=== PATIENT | female | born 1950 | race Caucasian/White ===

== ENCOUNTER → 2017-09-02 | Outpatient (CLI) | payer MEDICARE ==
--- NOTE | 2017-09-06 08:53 | MM ---
Reason for exam: screening (asymptomatic). Last mammogram was performed 1 year and 2 months ago. History: Patient is postmenopausal. Benign cyst aspiration, 2009. Taking estrogen for 12 years 6 months beginning at age 46. Taking progesterone for 12 years 6 months beginning at age 46. Physical Findings: A clinical breast exam by your physician is recommended on an annual basis and results should be correlated with mammographic findings. MG Screening Mammo w CAD Bilateral CC and MLO view(s) were taken. Prior study comparison: June 30, 2016, bilateral MG screening mammo w CAD. May 23, 2015, bilateral MG screening mammo w CAD. The breast tissue is heterogeneously dense. This may lower the sensitivity of mammography. Medial asymmetric density right breast middle depth has no correlate on the MLO view and may represent summation shadow but warrants further evaluation. ASSESSMENT: Incomplete: need additional imaging evaluation, BI-RAD 0 RECOMMENDATION: Special view mammogram of the right breast. If lesion persists on supplemental views, image directed ultrasound is recommended. [facility] will attempt to contact patient to return for supplemental views and ultrasound if indicated.
== END | disposition home or self-care (01) ==
LOC: RADMAMWWP 10:50
PROVIDERS: ATTEND Family Medicine
DX: Z12.31 Encounter for screening mammogram for malignant neoplasm of breast (principal)
CPT/HCPCS: 77067

== ENCOUNTER → 2017-09-09 | Outpatient (CLI) | payer MEDICARE ==
--- NOTE | 2017-09-12 07:32 | MM ---
Reason for exam: additional evaluation requested from abnormal screening. Last mammogram was performed less than 1 month ago. History: Patient is postmenopausal. Benign cyst aspiration, 2008. Taking estrogen for 12 years 6 months beginning at age 46. Taking progesterone for 12 years 6 months beginning at age 46. Physical Findings: Nurse did not find any significant physical abnormalities on exam. MG Work Up Mamm w CAD RT LM and spot compression CC view(s) were taken of the right breast. Prior study comparison: September 02, 2017, bilateral MG screening mammo w CAD. June 30, 2016, bilateral MG screening mammo w CAD. The breast tissue is heterogeneously dense. This may lower the sensitivity of mammography. The questioned medial asymmetry disperses on additional views. These results were verbally communicated with the patient and result sheet given to the patient on 09/09/17. ASSESSMENT: Negative, BI-RAD 1 RECOMMENDATION: Return to routine screening mammogram schedule for both breasts.
== END | disposition home or self-care (01) ==
LOC: RADMAMWWP 12:53
PROVIDERS: ATTEND Family Medicine
DX: R92.8 Other abnormal and inconclusive findings on diagnostic imaging of breast (principal)
CPT/HCPCS: 77065

== ENCOUNTER → 2018-09-12 | Outpatient (CLI) | payer MEDICARE ==
--- NOTE | 2018-09-12 14:57 | BD ---
EXAMINATION TYPE: Axial Bone Density DATE OF EXAM: 09/12/2018 COMPARISON: NONE CLINICAL HISTORY: post menopausal. Osteoporosis screening. Height: 5'3 1/2 Weight: 155 FRAX RISK QUESTIONS: Secondary Osteoporosis: RISK FACTORS HISTORY OF: Postmenopausal woman: y Take estrogen and/or progesterone medications: y How lon years MEDICATIONS: Thyroid Medications: Which medication: Levothyroxine How Lon years Additional Medications: blood pressure Additional History: EXAM MEASUREMENTS: Bone mineral densitometry was performed using the [employer] System. Bone mineral density as measured about the Lumbar spine is: ----- L1-L4(G/cm2): 1.087 T Score Values are as follows: ----- L2: -1.6 ----- L3: -0.7 ----- L4: 0.5 ----- L1-L4:-0.8 Bone mineral density about the R hip (g/cm2): 0.823 Bone mineral density about the L hip (g/cm2): 0.828 T Score values are as follows: -----R Neck: -1.5 -----L Neck: -1.5 -----R Total: -1.0 -----L Total: -0.9 IMPRESSION: Osteopenia (T Score between -2.5 and -1). There is slightly increased risk of fracture and the patient may be considered for treatment. Re-Screen 2-5 years. NOTE: T-SCORE=SD OF THE YOUNG ADULT MEAN.
--- NOTE | 2018-09-13 08:35 | MM ---
Reason for exam: screening (asymptomatic). Last mammogram was performed 1 year ago. History: Patient is postmenopausal. Benign cyst aspiration, 2008. Taking estrogen for 12 years 6 months beginning at age 46. Taking progesterone for 12 years 6 months beginning at age 46. Physical Findings: A clinical breast exam by your physician is recommended on an annual basis and results should be correlated with mammographic findings. MG Screening Mammo w CAD Bilateral CC and MLO view(s) were taken. Prior study comparison: September 09, 2017, right breast MG work up mamm w CAD RT. September 02, 2017, bilateral MG screening mammo w CAD. The breast tissue is heterogeneously dense. This may lower the sensitivity of mammography. No suspicious abnormality. No significant changes when compared with prior studies. ASSESSMENT: Negative, BI-RAD 1 RECOMMENDATION: Routine screening mammogram of both breasts in 1 year.
== END ==
LOC: RADMAMWWP 12:25
PROVIDERS: ATTEND Family Medicine
DX: Z12.31 Encounter for screening mammogram for malignant neoplasm of breast (principal); M85.80 Other specified disorders of bone density and structure, unspecified site; Z78.0 Asymptomatic menopausal state
CPT/HCPCS: 77067; 77080

== ENCOUNTER → 2019-09-26 | Outpatient (CLI) | payer MEDICARE ==
--- NOTE | 2019-09-26 13:09 | MM ---
Reason for exam: screening (asymptomatic). Last mammogram was performed 1 year ago. History: Patient is postmenopausal. Benign cyst aspiration, 2009. Taking estrogen for 12 years 6 months beginning at age 46. Taking progesterone for 12 years 6 months beginning at age 46. Physical Findings: A clinical breast exam by your physician is recommended on an annual basis and results should be correlated with mammographic findings. MG Screening Mammo w CAD Bilateral CC and MLO view(s) were taken. Prior study comparison: September 12, 2018, bilateral MG screening mammo w CAD. September 09, 2017, right breast MG work up mamm w CAD RT. The breast tissue is heterogeneously dense. This may lower the sensitivity of mammography. There is no discrete abnormality. ASSESSMENT: Negative, BI-RAD 1 RECOMMENDATION: Routine screening mammogram of both breasts in 1 year.
== END | disposition home or self-care (01) ==
LOC: RADMAMWWP 11:35
PROVIDERS: ATTEND Family Medicine
DX: Z12.31 Encounter for screening mammogram for malignant neoplasm of breast (principal)
CPT/HCPCS: 77067

== ENCOUNTER 2020-11-20 16:09 | Observation (INO) | payer MEDICARE ==
--- NOTE | 2020-11-20 17:15 | ED ---
Neuro HPI - General Chief Complaint: Neuro Symptoms/Deficit Stated Complaint: trouble gathering thoughts Time Seen by Provider: 11/20/20 16:30 Source: patient Mode of arrival: wheelchair Limitations: no limitations - History of Present Illness Is the patient presenting with stroke symptoms?: Yes Initial Comments: 69-year-old female past history of hypertension presents emergency department with reported expressive aphasia. Patient states that she had an extremely stressful day at home today. Around 3:30 PM she was counting money when she had sudden onset of inability to speak. States that she knew what she wanted to say however could not get out the words. Also reported that she started having difficulty counting money. This was witnessed by her family. Symptoms only lasted for approximately 5 minutes before they spontaneously resolved. She denies any associated headaches or visual changes. No recent head trauma. No weakness of her upper or lower extremities. Denies previous history of stroke. Patient is not on any blood thinners. She denies any chest pain or shortness of breath. She arrives asymptomatic. No alleviating, precipitating or modifying factors - Related Data Home Medications: Home Medications Medication Instructions Recorded Confirmed Estrogen,Con/M-Progest Acet 1 tab PO Q48H 11/20/20 11/20/20 [Prempro 0.3 mg-1.5 mg Tablet] Levothyroxine Sodium [Synthroid] 50 mcg PO DAILY 11/20/20 11/20/20 lisinopriL 20 mg PO BID 11/20/20 11/20/20 Previous Rx's Medication Instructions Recorded Aspirin 81 mg PO DAILY chew 11/21/20 Atorvastatin [Lipitor] 40 mg PO DAILY #30 tab 11/21/20 Clopidogrel [Plavix] 75 mg PO DAILY #20 tab 11/21/20 Allergies/Adverse Reactions: Allergies Allergy/AdvReac Type Severity Reaction Status Date / Time codeine AdvReac Nausea Verified 11/20/20 18:02 Review of Systems ROS Statement: Those systems with pertinent positive or pertinent negative responses have been documented in the HPI. ROS Other: All systems not noted in ROS Statement are negative. General Exam Limitations: no limitations General appearance: alert, in no apparent distress Head exam: Present: atraumatic, normocephalic, normal inspection Eye exam: Present: normal appearance, PERRL, EOMI. Absent: scleral icterus, conjunctival injection, periorbital swelling ENT exam: Present: normal exam, mucous membranes moist Neck exam: Present: normal inspection. Absent: tenderness, meningismus, lymphadenopathy Respiratory exam: Present: normal lung sounds bilaterally. Absent: respiratory distress, wheezes, rales, rhonchi, stridor Cardiovascular Exam: Present: regular rate, normal rhythm, normal heart sounds. Absent: systolic murmur, diastolic murmur, rubs, gallop, clicks GI/Abdominal exam: Present: soft, normal bowel sounds. Absent: distended, ten derness, guarding, rebound, rigid Extremities exam: Present: normal inspection, full ROM, normal capillary refill. Absent: tenderness, pedal edema, joint swelling, calf tenderness Back exam: Present: normal inspection Neurological exam: Present: alert, oriented X3, CN II-XII intact Psychiatric exam: Present: normal affect, normal mood Skin exam: Present: warm, dry, intact, normal color. Absent: rash Stroke MDM - Lab Data Result diagrams: 11/21/20 05:24 11/21/20 05:24 Lab Results 11/20/20 11/20/20 11/20/20 Range/Units 16:38 16:38 16:38 WBC 6.0 (3.8-10.6) k/uL RBC 4.76 (3.80-5.40) m/uL Hgb 15.1 (11.4-16.0) gm/dL Hct 43.5 (34.0-46.0) % MCV 91.6 (80.0-100.0) fL MCH 31.9 (25.0-35.0) pg MCHC 34.8 (31.0-37.0) g/dL RDW 12.5 (11.5-15.5) % Plt Count 217 (150-450) k/uL MPV 8.1 Neutrophils % 58 % Lymphocytes % 30 % Monocytes % 5 % Eosinophils % 4 % Basophils % 1 % Neutrophils # 3.5 (1.3-7.7) k/uL Lymphocytes # 1.8 (1.0-4.8) k/uL Monocytes # 0.3 (0-1.0) k/uL Eosinophils # 0.3 (0-0.7) k/uL Basophils # 0.1 (0-0.2) k/uL PT 10.3 (9.0-12.0) sec INR 1.0 (<1.2) APTT 22.4 (22.0-30.0) sec Sodium 139 (137-145) mmol/L Potassium 3.8 (3.5-5.1) mmol/L Chloride 107 (98-107) mmol/L Carbon Dioxide 21 L (22-30) mmol/L Anion Gap 11 mmol/L BUN 17 (7-17) mg/dL Creatinine 0.74 (0.52-1.04) mg/dL Est GFR (CKD-EPI)AfAm >90 (>60 ml/min/1.73 sqM) Est GFR (CKD-EPI)NonAf 83 (>60 ml/min/1.73 sqM) Glucose 90 (74-99) mg/dL Calcium 9.3 (8.4-10.2) mg/dL Total Bilirubin 1.3 (0.2-1.3) mg/dL AST 28 (14-36) U/L ALT 23 (4-34) U/L Alkaline Phosphatase 108 (38-126) U/L Troponin I (0.000-0.034) ng/mL Total Protein 7.8 (6.3-8.2) g/dL Albumin 4.5 (3.5-5.0) g/dL 11/20/20 Range/Units 16:38 WBC (3.8-10.6) k/uL RBC (3.80-5.40) m/uL Hgb (11.4-16.0) gm/dL Hct (34.0-46.0) % MCV (80.0-100.0) fL MCH (25.0-35.0) pg MCHC (31.0-37.0) g/dL RDW (11.5-15.5) % Plt Count (150-450) k/uL MPV Neutrophils % % Lymphocytes % % Monocytes % % Eosinophils % % Basophils % % Neutrophils # (1.3-7.7) k/uL Lymphocytes # (1.0-4.8) k/uL Monocytes # (0-1.0) k/uL Eosinophils # (0-0.7) k/uL Basophils # (0-0.2) k/uL PT (9.0-12.0) sec INR (<1.2) APTT (22.0-30.0) sec Sodium (137-145) mmol/L Potassium (3.5-5.1) mmol/L Chloride (98-107) mmol/L Carbon Dioxide (22-30) mmol/L Anion Gap mmol/L BUN (7-17) mg/dL Creatinine (0.52-1.04) mg/dL Est GFR (CKD-EPI)AfAm (>60 ml/min/1.73 sqM) Est GFR (CKD-EPI)NonAf (>60 ml/min/1.73 sqM) Glucose (74-99) mg/dL Calcium (8.4-10.2) mg/dL Total Bilirubin (0.2-1.3) mg/dL AST (14-36) U/L ALT (4-34) U/L Alkaline Phosphatase (38-126) U/L Troponin I <0.012 (0.000-0.034) ng/mL Total Protein (6.3-8.2) g/dL Albumin (3.5-5.0) g/dL - Medical Decision Making Upon arrival patient is placed in room 8. Thorough history and physical exam was performed. NIH was performed and is negative. IV is established. Laboratory studies were conducted. Patient went over for CT of her brain as well as CT angiography. Laboratory studies are reviewed and within normal limits. CT of the brain demonstrates no acute process. CT angiography demonstrates no significant abnormality. Patient is reevaluated and continues to have no speech difficulties. I did recommend admission for neurology consultation. Patient did agree to this. Spoke with Megan who agreed to admission. Patient given an aspirin and is awaiting a bed on the floor in stable condition. 11/20/20 17:14 EKG demonstrates a sinus rhythm with a ventricular rate of 70. TN inerval of 152. QRS 86. QTC of 457. No acute ST segment elevations or depressions Past Medical History Past Medical History: Hypertension History of Any Multi-Drug Resistant Organisms: None Reported Past Surgical History: Cholecystectomy, Tonsillectomy Additional Past Surgical History / Comment(s): partial hysterectomy Past Psychological History: No Psychological Hx Reported Smoking Status: Never smoker Past Alcohol Use History: None Reported Past Drug Use History: None Reported Course Vital Signs 11/20/20 11/20/20 11/20/20 16:12 17:23 18:52 Temperature 98 F Pulse Rate 87 76 78 Respiratory 16 16 16 Rate Blood Pressure 192/104 196/99 178/96 O2 Sat by Pulse 98 100 99 Oximetry 11/20/20 20:00 Temperature Pulse Rate 84 Respiratory 18 Rate Blood Pressure 174/90 O2 Sat by Pulse 97 Oximetry Disposition Clinical Impression: Expressive aphasia, TIA (transient ischemic attack) Disposition: ADMITTED IP TO THIS HOSP Condition: Stable Is patient prescribed a controlled substance at d/c from ED?: No Decision to Admit Reason: Admit from EC Decision Date: 11/20/20 Decision Time: 18:47
--- NOTE | 2020-11-20 17:43 | CT ---
EXAMINATION: CT brain wo con DATE AND TIME: 11/20/2020 5:26 PM CLINICAL INDICATION: PHH; Neuro deficit, acute, stroke suspected TECHNIQUE: Standard departmental protocol.; 1466.3; COMPARISON: CT 12/25/2009 FINDINGS: The calvarium is intact. There is no intracranial hemorrhage. There is no intracranial mass or mass effect. No definite new intra-axial or extra-axial attenuation defect. The paranasal sinuses, middle ear cavities, and mastoid sinus air cells are clear. The orbits are unremarkable. IMPRESSION: NO ACUTE PROCESS.
[2020-11-20 17:47] LABS: Basophils # (A) 0.1 k/uL (0-0.2); Basophils % (A) 1 %; Eosinophils # (A) 0.3 k/uL (0-0.7); Eosinophils % (A) 4 %; HCT 43.5 % (34.0-46.0); HGB 15.1 gm/dL (11.4-16.0); Lymphocytes # (A) 1.8 k/uL (1.0-4.8); Lymphocytes % (A) 30 %; MCH 31.9 pg (25.0-35.0); MCHC 34.8 g/dL (31.0-37.0); MCV 91.6 fL (80.0-100.0); Mean Platelet Volume 8.1; Monocytes # (A) 0.3 k/uL (0-1.0); Monocytes % (A) 5 %; Neutrophils # (A) 3.5 k/uL (1.3-7.7); Neutrophils % (A) 58 %; Platelet Count 217 k/uL (150-450); RBC 4.76 m/uL (3.80-5.40); RDW 12.5 % (11.5-15.5)
[2020-11-20 17:55] LABS: ALT 23 U/L (4-34); AST 28 U/L (14-36); African American GFR (CKD) >90 (>60 ml/min/1.73 sqM); Albumin 4.5 g/dL (3.5-5.0); Alkaline Phosphatase 108 U/L (38-126); Anion Gap 11 mmol/L; Blood Urea Nitrogen 17 mg/dL (7-17); Calcium 9.3 mg/dL (8.4-10.2); Carbon Dioxide 21 mmol/L (22-30); Chloride 107 mmol/L (98-107); Glucose 90 mg/dL (74-99); Non-African American GFR(CKD) 83 (>60 ml/min/1.73 sqM); Potassium 3.8 mmol/L (3.5-5.1); Sodium 139 mmol/L (137-145); Total Bilirubin 1.3 mg/dL (0.2-1.3); Total Protein 7.8 g/dL (6.3-8.2)
--- NOTE | 2020-11-20 18:01 | CT ---
EXAMINATION TYPE: CT ANGIO HEAD NECK WITH CONTRAST AND WITH 3-D RECONSTRUCTION RENDERINGS DATE OF EXAM: 11/20/2020 HISTORY: Weakness and elevated blood pressure. COMPARISON: CT head without contrast 11/20/2020 CT DLP: 1466.3 mGycm. Automated Exposure Control for Dose Reduction was Utilized. TECHNIQUE: CTA scan of the neck is performed with IV Contrast, patient injected with 75 mL of Isovue 370, axial images are obtained, coronal and sagittal reformatted images are reviewed. Three-D recons tructed images are created on an independent workstation and reviewed. FINDINGS: Carotid/Vascular Structures: The bilateral carotid and vertebral arterial systems are widely patent w ithout dissection or flow-limiting stenosis. The intracranial anterior circulation and intracranial p osterior circulation are patent, without focal findings. Other: No incidental findings. IMPRESSION: No significant abnormality is seen.
[2020-11-20 18:05] LABS: Partial Thromboplastin Time 22.4 sec (22.0-30.0); Prothrombin Time 10.3 sec (9.0-12.0)
[2020-11-20] MEDS ORDERED: ASPIRIN 325 MG TAB PO STA (18:41)
[2020-11-20] MEDS ORDERED: NALOXONE 0.4 MG/ML 1 ML VIAL IV PRN (18:48)
[2020-11-21] MEDS ORDERED: LEVOTHYROXINE 50 MCG TAB PO SCH (06:30)
[2020-11-21] MEDS ORDERED: lisinopriL 20 MG TAB PO SCH (09:00)
[2020-11-21] MEDS ORDERED: CLOPIDOGREL 75 MG TAB PO SCH (10:45)
[2020-11-21] MEDS ORDERED: ASPIRIN 81 MG PO SCH (10:45)
--- NOTE | 2020-11-21 10:51 | P.CNNES ---
History of Present Illness Consult date: 11/21/20 Requesting physician: Lucie Li Reason for Consult: acute expressive aphasia History of Present Illness: This is a 69-year-old woman with medical history of hypertention that presented to the emergency department on the 11/20/2020 for reported expressive aphasia. It seems at around 3:30 PM on 11/20/2020 the she was counting money and then all of a sudden she had inability to speak. She knew what she wanted to say but could not get the words out that. She also had difficulty counting her money. The symptoms lasted for less 5 minutes and then resolved. This was witnessed by family members. She denies of any other neurological complaints associate with this event such as weakness, numbness, visual disturbance, difficulty swallowing. She denies of any headache associated with this. She stated that the she has history of hypertension for at least 40 years but stated that that she missed her blood pressure medication in the morning and was under a lot of stress. She denies of any history of TIA or stroke in the past. Currently the patient is back to baseline and she denies any further neurological complaints. Patient is not on any antiplatelets or statins or any anticoagulation. Workup in the hospital consisted of: Initial vitals: Blood pressure of 192/104, heart rate of 87, temperature of 98.0 Fahrenheit oral, respiratory of [address] of the head is reported as no acute process CT angiography of the head and neck was reported as no significant abnormality seen. EKG is reported as normal sinus rhythm. Normal EKG. Patient initial serum glucose is 90 which is normal. The rest of the basic CBC and the the electrolytes were reviewed and were normal. Review of Systems Review of system: The 12 point system was reviewed and apparent positive and negative per HPI. Past Medical History Past Medical History: Hypertension History of Any Multi-Drug Resistant Organisms: None Reported Past Surgical History: Cholecystectomy, Tonsillectomy Additional Past Surgical History / Comment(s): partial hysterectomy Past Psychological History: No Psychological Hx Reported Smoking Status: Never smoker Past Alcohol Use History: None Reported Past Drug Use History: None Reported Medications and Allergies Home Medications Medication Instructions Recorded Confirmed Type Estrogen,Con/M-Progest Acet 1 tab PO Q48H 11/20/20 11/20/20 History [Prempro 0.3 mg-1.5 mg Tablet] Levothyroxine Sodium [Synthroid] 50 mcg PO DAILY 11/20/20 11/20/20 History lisinopriL 20 mg PO BID 11/20/20 11/20/20 History Allergies Allergy/AdvReac Type Severity Reaction Status Date / Time codeine AdvReac Nausea Verified 11/20/20 18:02 Physical Examination - Vital Signs Vital Signs: Vital Signs Temp Pulse Pulse Resp BP BP Pulse Ox 11/21/20 07:00 98.1 F 72 16 175/83 96 11/21/20 02:00 98.2 F 73 16 153/88 97 11/21/20 01:49 89 18 11/20/20 21:53 98.7 F 89 155/108 95 11/20/20 20:00 84 18 174/90 97 11/20/20 18:52 78 16 178/96 99 11/20/20 17:23 76 16 196/99 100 11/20/20 16:12 98 F 87 16 192/104 98 Intake and Output 11/20/20 11/21/20 11/21/20 22:59 06:59 14:59 Intake Total 0 222 Balance 0 222 Intake: Oral 0 222 Other: Voiding Method Toilet # Voids 0 0 Weight 70.307 kg GENERAL: The patient is lying in bed and is not in acute distress. CHEST: The heart rate is regular rate rhythm. No murmurs to auscultation. No carotid bruit bilaterally. LUNG: Clear to auscultation bilaterally no wheezing noted throughout. Not labored breathing. ABDOMEN/GI: Bowel sounds present in all 4 quadrants. No tenderness to palpation throughout. NEUROLOGICAL: Higher mental function: The patient is awake, alert, oriented to self, place and time. Patient is following commands. No aphasia and no neglect. Cranial nerves: The pupils are round, equal and reactive to light and accommodation. Visual read are full to confrontation throughout. Extraocular movement is intact no nystagmus is noted. Facial sensation is normal to touch throughout. The facial strength is normal throughout. Hearing is normal bilaterally to hand rub. Tongue is midline and moved [id number] without any difficulty. No dysarthria is noted. Shoulder shrug is normal bilaterally. Motor: Gait is normal with normal arm swings. The strength is 5 over 5 throughout. Normal tone and bulk. Cerebellum: Normal finger to nose heel to chin bilaterally. Sensation: Sensation is normal to touch throughout. Reflexes (right/left): 2+ throughout. Plantars are downgoing bilaterally. Results Coagulation study: PT of 10.3, INR 1.0, PTT of 22.4. SARS-COV2 PCR: Not detected. - Laboratory Findings CBC and BMP: 11/20/20 16:38 11/20/20 16:38 Abnormal Lab Findings: Abnormal Labs 11/20/20 16:38 Carbon Dioxide 21 L Assessment and Plan Assessment: Transient episode of expressive aphasia is likely Transient ischemic attack. Etiology likely her risk factor (HTN) and her hypertension was uncontrolled yesterday. Uncontrolled hypertension Plan: Patient was given aspirin 325 once in the ED. I saw her the patient on aspirin 81 mg and Plavix 75 mg. The patient was told to be on dual antiplatelets for 21 days then after 21 days to stop Plavix and continue indefinitely on aspirin. Started the patient on Lipitor 40 mg daily. Ordered 2-D echo lipid panel and TSH. Consulted [employer]AL[employer] ASSURANCE TEST PROGRAM MANAGER team. Continue continuous cardiac monitoring. Continue neuro assessment every 4 hours. If the work-up above are normal then the patient is clear from neurological ty dpoint. She was told she needs to follow-up with a neurologist within 1-2 weeks as outpatient. Consider following-up with Dr. Kim unless patient knows another neurologist she prefer to go to. We'll defer the rest of the medical management to the primary team. Thank you for the consultation. The plan is discussed with the patient's nurse. Jose Luis Correa M.D. Neuro-hospitalist Time with Patient: Greater than 30
[2020-11-21 11:01] LABS: Basophils # (A) 0.07 X 10*3/uL (0.00-0.10); Basophils % (A) 1.6 %; Eosinophils # (A) 0.23 X 10*3/uL (0.04-0.35); Eosinophils % (A) 5.1 %; HCT 37.4 % (37.2-46.3); HGB 12.4 g/dL (12.0-15.0); Lymphocytes # (A) 1.34 X 10*3/uL (0.90-5.00); Lymphocytes % (A) 29.8 %; MCHC 33.2 g/dL (32.0-37.0); MCV 93.5 fL (80.0-97.0); Monocytes # (A) 0.36 X 10*3/uL (0.20-1.00); Neutrophils # (A) 2.49 X 10*3/uL (1.80-7.70); Neutrophils % (A) 55.3 %; Platelet Count 174 X 10*3/uL (140-440); RDW 12.6 % (11.5-14.5)
[2020-11-21 13:51] VITALS: BP 177/83; PULSE 78; RESP 18; TEMP 98
[2020-11-21 14:17] LABS: Anion Gap 7.4 mmol/L (4.00-12.00); BUN/Creat Ratio 23.33 Ratio (12.00-20.00); Calcium 8.6 mg/dL (8.7-10.3); Carbon Dioxide 21.6 mmol/L (21.6-31.8); Non-African American GFR(CKD) 92.4 (60.0-200.0); Potassium 3.9 mmol/L (3.5-5.5)
--- NOTE | 2020-11-21 17:01 | ECHOF ---
Referral Reason:tia symptoms expressive aphasia MEASUREMENTS -------- HEIGHT: 162.6 cm WEIGHT: 70.3 kg BP: 175/83 RVIDd: 3.3 cm (< 3.3) IVSd: 1.3 cm (0.6 - 1.1) LVIDd: 4.2 cm (3.9 - 5.3) LVPWd: 1.3 cm (0.6 - 1.1) IVSs: 1.7 cm LVIDs: 2.3 cm LVPWs: 2.0 cm LAESV Index (A-L): 29.61 ml/m Ao Diam: 2.6 cm (2.0 - 3.7) AV Cusp: 1.9 cm (1.5 - 2.6) MV EXCURSION: 21.518 mm (> 18.000) MV EF SLOPE: 123 mm/s (70 - 150) EPSS: 0.3 cm MV E Raffy: 0.69 m/s MV DecT: 194 ms MV A Raffy: 0.85 m/s MV E/A Ratio: 0.81 RAP: 5.00 mmHg RVSP: 22.84 mmHg FINDINGS -------- Sinus rhythm. This was a technically adequate study. The left ventricular size is normal. There is mild concentric left ventricular hypertrophy. Overa ll left ventricular systolic function is normal with, an EF between 55 - 60 %. The diastolic fillin g pattern is normal for the age of the patient 11.22. The right ventricle is mildly enlarged. LA is midly dilated 29-33ml/m2. The right atrial size is normal. Interatrial and interventricular septum intact. There is no evidence of aortic regurgitation. There is no evidence of aortic stenosis. Mild mitral regurgitation is present. Mild tricuspid regurgitation present. There is no evidence of pulmonary hypertension. The right v entricular systolic pressure, as measured by Doppler, is 22.84mmHg. There is no pulmonic regurgitation present. The aortic root size is normal. The inferior vena cava is mildly dilated. There is no pericardial effusion. CONCLUSIONS -------- 1. The left ventricular size is normal. 2. There is mild concentric left ventricular hypertrophy. 3. Overall left ventricular systolic function is normal with, an EF between 55 - 60 %. 4. The diastolic filling pattern is normal for the age of the patient 11.22 5. The right ventricle is mildly enlarged. 6. LA is midly dilated 29-33ml/m2. 7. Mild mitral regurgitation is present. 8. Mild tricuspid regurgitation present. 9. The inferior vena cava is mildly dilated. ADMIN ASSISTANT: Sheryl Millan RDCS
[2020-11-22 06:53] LABS: Chol/HDL Ratio 2.73; LDL Cholesterol,Calculated 94.4 mg/dL (0.0-131.0); VLDL Calculation 16.6 mg/dL (5.00-40.00)
[2020-11-22] MEDS ORDERED: ATORVASTATIN 40 MG TAB PO SCH (09:00)
--- NOTE | 2020-12-05 14:11 | P.HPIM ---
History of Present Illness H&P Date: 11/21/20 Chief Complaint: Speech difficulty 69-year-old woman with medical history of hypertention that presented to the emergency department on the 11/20/2020 for reported expressive aphasia. It seems at around 3:30 PM on 11/20/2020 the she was counting money and then all of a sudden she had inability to speak. She knew what she wanted to say but could not get the words out that. She also had difficulty counting her money. The symptoms lasted for less 5 minutes and then resolved. This was witnessed by family members. She denies of any other neurological complaints associate with this event such as weakness, numbness, visual disturbance, difficulty swallowing. She denies of any headache associated with this. She stated that the she has history of hypertension for at least 40 years but stated that that she missed her blood pressure medication in the morning and was under a lot of stress. She denies of any history of TIA or stroke in the past. Currently the patient is back to baseline and she denies any further neurological complaints. Patient is not on any antiplatelets or statins or any anticoagulation. Workup in the hospital consisted of: Initial vitals: Blood pressure of 192/104, heart rate of 87, temperature of 98.0 Fahrenheit oral, respiratory of [address] of the head is reported as no acute process CT angiography of the head and neck was reported as no significant abnormality seen. EKG is reported as normal sinus rhythm. Normal EKG. Patient initial serum glucose is 90 which is normal. The rest of the basic CBC and the the electrolytes were reviewed and were normal. Review of Systems REVIEW OF SYSTEMS: CONSTITUTIONAL: No fever, no malaise, no fatigue. HEENT: No recent visual problems or hearing problems. Denied any sore throat. CARDIOVASCULAR: No chest pain, orthopnea, PND, no palpitations, no syncope. PULMONARY: No shortness of breath, no cough, no hemoptysis. GASTROINTESTINAL: No diarrhea, no nausea, no vomiting, no abdominal pain. NEUROLOGICAL: Expressive aphasia. HEMATOLOGICAL: Denies any bleeding or petechiae. GENITOURINARY: Denies any burning micturition, frequency, or urgency. MUSCULOSKELETAL/RHEUMATOLOGICAL: Denies any joint pain, swelling, or any muscle pain. ENDOCRINE: Denies any polyuria or polydipsia. The rest of the 14-point review of systems is negative. Past Medical History Past Medical History: Hypertension History of Any Multi-Drug Resistant Organisms: None Reported Past Surgical History: Cholecystectomy, Tonsillectomy Additional Past Surgical History / Comment(s): partial hysterectomy Past Psychological History: No Psychological Hx Reported Smoking Status: Never smoker Past Alcohol Use History: None Reported Past Drug Use History: None Reported Medications and Allergies Home Medications Medication Instructions Recorded Confirmed Type Estrogen,Con/M-Progest Acet 1 tab PO Q48H 11/20/20 11/20/20 History [Prempro 0.3 mg-1.5 mg Tablet] Levothyroxine Sodium [Synthroid] 50 mcg PO DAILY 11/20/20 11/20/20 History lisinopriL 20 mg PO BID 11/20/20 11/20/20 History Aspirin 81 mg PO DAILY chew 11/21/20 Rx Atorvastatin [Lipitor] 40 mg PO DAILY #30 tab 11/21/20 Rx Clopidogrel [Plavix] 75 mg PO DAILY #20 tab 11/21/20 Rx Allergies Allergy/AdvReac Type Severity Reaction Status Date / Time codeine AdvReac Nausea Verified 11/20/20 18:02 Physical Exam Vitals: Vital Signs Temp Pulse Pulse Resp BP BP Pulse Ox 11/21/20 13:50 98.0 F 78 18 177/83 11/21/20 07:00 98.1 F 72 16 175/83 96 11/21/20 02:00 98.2 F 73 16 153/88 97 11/21/20 01:49 89 18 11/20/20 21:53 98.7 F 89 155/108 95 11/20/20 20:00 84 18 174/90 97 11/20/20 18:52 78 16 178/96 99 11/20/20 17:23 76 16 196/99 100 11/20/20 16:12 98 F 87 16 192/104 98 Intake and Output 11/20/20 11/21/20 11/21/20 22:59 06:59 14:59 Intake Total 0 222 Balance 0 222 Intake: Oral 0 222 Other: Voiding Method Toilet # Voids 0 0 Weight 70.307 kg PHYSICAL EXAMINATION: GENERAL: The patient is alert and oriented x3, not in any acute distress. Well developed, well nourished. HEENT: Pupils are round and equally reacting to light. EOMI. No scleral icterus. No conjunctival pallor. Normocephalic, atraumatic. No pharyngeal erythema. No thyromegaly. CARDIOVASCULAR: S1 and S2 present. No murmurs, rubs, or gallops. PULMONARY: Chest is clear to auscultation, no wheezing or crackles. ABDOMEN: Soft, nontender, nondistended, normoactive bowel sounds. No palpable organomegaly. MUSCULOSKELETAL: No joint swelling or deformity. EXTREMITIES: No cyanosis, clubbing, or pedal edema. NEUROLOGICAL: Gross neurological examination did not reveal any focal deficits. SKIN: No rashes. Results CBC & Chem 7: 11/21/20 05:24 11/21/20 05:24 Labs: Abnormal Lab Results - Last 24 Hours (Table) 11/20/20 11/21/20 11/21/20 Range/Units 16:38 05:24 05:24 RBC 4.00 L (4.10-5.20) X 10*6/uL Chloride 112 H (96-109) mmol/L Carbon Dioxide 21 L (22-30) mmol/L BUN/Creatinine Ratio 23.33 H (12.00-20.00) Ratio Calcium 8.6 L (8.7-10.3) mg/dL Assessment and Plan Assessment: 1. Transient episode of expressive aphasia is likely Transient ischemic attack. Etiology likely her risk factor (HTN) and her hypertension was uncontrolled yesterday. 2. Uncontrolled hypertension 3. Hypothyroidism Plan: Patient was given aspirin 325 once in the ED. I saw her the patient on aspirin 81 mg and Plavix 75 mg. The patient was told to be on dual antiplatelets for 21 days then after 21 days to stop Plavix and continue indefinitely on aspirin. Started the patient on Lipitor 40 mg daily. Ordered 2-D echo lipid panel and TSH. Consulted [employer] team. Continue continuous cardiac monitoring. Continue neuro assessment every 4 hours.
--- NOTE | 2020-12-05 14:12 | P.DS ---
Providers Date of admission: 11/20/20 18:48 Expected date of discharge: 11/21/20 Attending physician: Vicki Toledo Consults: 11/20/20 19:03 Consult Physician Urgent Consulting Provider: Jose Luis Correa Consult Reason/Comments: acute expressive aphasia, possible tia Do you want consulting provider notified?: Yes Primary care physician: [facility] Course: 69-year-old woman with medical history of hypertention that presented to the emergency department on the 11/20/2020 for reported expressive aphasia. It seems at around 3:30 PM on 11/20/2020 the she was counting money and then all of a sudden she had inability to speak. She knew what she wanted to say but could not get the words out that. She also had difficulty counting her money. The symptoms lasted for less 5 minutes and then resolved. This was witnessed by family members. She denies of any other neurological complaints associate with this event such as weakness, numbness, visual disturbance, difficulty swallowing. She denies of any headache associated with this. She stated that the she has history of hypertension for at least 40 years but stated that that she missed her blood pressure medication in the morning and was under a lot of stress. She denies of any history of TIA or stroke in the past. Currently the patient is back to baseline and she denies any further neurological complaints. Patient is not on any antiplatelets or statins or any anticoagulation. Workup in the hospital consisted of: Initial vitals: Blood pressure of 192/104, heart rate of 87, temperature of 98.0 Fahrenheit oral, respiratory of [address] of the head is reported as no acute process CT angiography of the head and neck was reported as no significant abnormality seen. EKG is reported as normal sinus rhythm. Normal EKG. Patient initial serum glucose is 90 which is normal. The rest of the basic CBC and the the electrolytes were reviewed and were normal. Patient was given aspirin 325 once in the ED. I saw her the patient on aspirin 81 mg and Plavix 75 mg. The patient was told to be on dual antiplatelets for 21 days then after 21 days to stop Plavix and continue indefinitely on aspirin. Started the patient on Lipitor 40 mg daily. Ordered 2-D echo lipid panel and TSH. Consulted [employer] SPECIALIST team. Continue continuous cardiac monitoring. Continue neuro assessment every 4 hours. If the work-up above are normal then the patient is clear from neurological standpoint. She was told she needs to follow-up with a neurologist within 1-2 weeks as outpatient. Consider following-up with Dr. Kim unless patient knows another neurologist she prefer to go to. Patient Condition at Discharge: Stable Plan - Discharge Summary New Discharge Prescriptions: New Atorvastatin [Lipitor] 40 mg PO DAILY #30 tab Clopidogrel [Plavix] 75 mg PO DAILY #20 tab Aspirin 81 mg PO DAILY chew Continue lisinopriL 20 mg PO BID Levothyroxine Sodium [Synthroid] 50 mcg PO DAILY Estrogen,Con/M-Progest Acet [Prempro 0.3 mg-1.5 mg Tablet] 1 tab PO Q48H Discharge Medication List Estrogen,Con/M-Progest Acet [Prempro 0.3 mg-1.5 mg Tablet] 1 tab PO Q48H 11/20/20 [History] Levothyroxine Sodium [Synthroid] 50 mcg PO DAILY 11/20/20 [History] lisinopriL 20 mg PO BID 11/20/20 [History] Aspirin 81 mg PO DAILY chew 11/21/20 [Rx] Atorvastatin [Lipitor] 40 mg PO DAILY #30 tab 11/21/20 [Rx] Clopidogrel [Plavix] 75 mg PO DAILY #20 tab 11/21/20 [Rx] Follow up Appointment(s)/Referral(s): Lacey Flores MD [Primary Care Provider] - 1-2 days Patient Instructions/Handouts: Transient Ischemic Attack (GEN) Discharge Disposition: HOME SELF-CARE
== END 2020-11-21 18:21 | disposition home or self-care (01) ==
LOC: EC 16:09 → 6NMEDSUR 18:48
PROVIDERS: ADMIT Internal Medicine; ATTEND Internal Medicine
DX: R47.01 Aphasia (principal); I10 Essential (primary) hypertension; E03.9 Hypothyroidism, unspecified; Z73.3 Stress, not elsewhere classified; Z79.890 Hormone replacement therapy; Z79.02 Long term (current) use of antithrombotics/antiplatelets; Z79.82 Long term (current) use of aspirin; Z79.899 Other long term (current) drug therapy; Z88.5 Allergy status to narcotic agent; Z90.711 Acquired absence of uterus with remaining cervical stump; Z90.49 Acquired absence of other specified parts of digestive tract
CPT/HCPCS: 93005 ×2; 99285; 36415; 93306; 80061; 80053; 80048; 84443; 84484; 85025 ×2; 85610; 85730; 87636; 70496; 70450; 70498; G0378 ×2; Q9967

== ENCOUNTER → 2020-12-23 | Outpatient (CLI) | payer MEDICARE ==
--- NOTE | 2020-12-24 07:53 | BD ---
EXAMINATION TYPE: Axial Bone Density DATE OF EXAM: 12/23/2020 COMPARISON: DEXA bone scan September 12, 2018 CLINICAL HISTORY: Postmenopausal female Height: 63.5 Weight: 157.7 FRAX RISK QUESTIONS: Alcohol (3 or more units per day): no Family History (Parent hip fracture): no Glucocorticoids (More than 3mos): no (Ex: prednisone, prednisolone, methylprednisolone, dexamethasone, and hydrocortisone). History of Fracture in Adulthood: no Secondary Osteoporosis: 1. Type 1 Diabetes: no 2. Hyperthyroidism: no 3. Menopause before 45: no 4. Malnutrition: no 5. Chronic liver disease: no Rheumatoid Arthritis: no Current Tobacco Use: no RISK FACTORS HISTORY OF: Surgery to Spine/Hip(right/left)/Wrist (right/left): no Family History of Osteoporosis: yes Active: yes Diet low in dairy products/other sources of calcium: yes Postmenopausal woman: age 45 Take estrogen and/or progesterone medications: yes How lon years Lost more than 2 inches in height since high school: no MEDICATIONS: Prempro, biest, lisinopril, hydrochlorothiazide Thyroid Medications: levothyroxine How Lon years Additional History: EXAM MEASUREMENTS: Bone mineral densitometry was performed using the Cerephex System. Bone mineral density as measured about the Lumbar spine is: ----- L1-L4(G/cm2): 1.183 T Score Values are as follows: ----- L2: -1.2 ----- L3: 0.4 ----- L4: 1.8 ----- L1-L4: 0.0 Bone mineral density has: increased 10.8 % since study of: 09.12.2018 Bone mineral density about the R hip (g/cm2): 0.862 Bone mineral density about the L hip (g/cm2): 0.795 T Score values are as follows: -----R Neck: -1.3 -----L Neck: -1.8 -----R Total: -0.6 -----L Total: -0.9 Bone mineral density has: increased 3.1 % since study of: 09.12.2018 IMPRESSION: Osteopenia (T Score between -2.5 and -1) remains present. There remains slightly increased risk of fracture and the patient may be considered for treatment. Re-Screen 2-5 years. NOTE: T-SCORE=SD OF THE YOUNG ADULT MEAN.
--- NOTE | 2020-12-26 11:05 | MM ---
Reason for exam: screening (asymptomatic). Last mammogram was performed 1 year and 3 months ago. History: Patient is postmenopausal. Benign cyst aspiration, 2008. Taking hormonal contraceptives. Taking estrogen for 12 years 6 months beginning at age 46. Taking progesterone for 12 years 6 months beginning at age 46. Physical Findings: A clinical breast exam by your physician is recommended on an annual basis and results should be correlated with mammographic findings. MG 3D Screening Mammo W/Cad Bilateral CC and MLO view(s) were taken. Prior study comparison: September 26, 2019, bilateral MG screening mammo w CAD. September 12, 2018, bilateral MG screening mammo w CAD. The breast tissue is heterogeneously dense. This may lower the sensitivity of mammography. ASSESSMENT: Benign, BI-RAD 2 RECOMMENDATION: Routine screening mammogram of both breasts in 1 year.
== END | disposition home or self-care (01) ==
LOC: RADMAMWWP 12:56
PROVIDERS: ATTEND Family Medicine
DX: Z12.31 Encounter for screening mammogram for malignant neoplasm of breast (principal); N95.9 Unspecified menopausal and perimenopausal disorder; M85.80 Other specified disorders of bone density and structure, unspecified site; Z98.890 Other specified postprocedural states
CPT/HCPCS: 77063; 77067; 77080

== ENCOUNTER → 2021-12-24 | Outpatient (CLI) | payer MEDICARE ==
--- NOTE | 2021-12-24 14:08 | MM ---
Reason for Exam: Screening (asymptomatic). Last screening mammogram was performed 12 month(s) ago. Patient History: Menarche at age 11. First Full-Term at age 23. Right ovary removed at age 47. Postmenopausal. Currently using Estrogen, beginning at age 46 for 12 years, 6 months. Currently using Progesterone, beginning at age 46 for 12 years, 6 months. Currently using Hormonal Contraceptives. Benign Cyst Aspiration. Risk Values: Glenys 5 year model risk: 1.6%. NCI Lifetime model risk: 4.1%. Prior Study Comparison: 09/12/2018 Bilateral Screening Mammogram, [facility]. 09/26/2019 Bilateral Screening Mammogram, [facility]. 12/23/2020 Bilateral Screening Mammogram, [facility]. Tissue Density: The breast tissue is heterogeneously dense. This may lower the sensitivity of mammography. Findings: Analyzed By CAD. There is more prominent 9 mm focal asymmetric density in the middle depth upper outer aspect right breast that warrants further workup. Overall Assessment: Incomplete: need additional imaging evaluation, BI-RAD 0 Management: Special View Mammogram of both breasts. If lesion persists on supplemental views, image directed ultrasound is recommended. [facility] will attempt to contact patient to return for supplemental views and ultrasound if indicated. Right . Additional spot views and true lateral view right breast. 3-D imaging preferred if possible. (Summation density versus true lesion). Electronically signed and approved by: Antolin Yee M.D.
== END | disposition home or self-care (01) ==
LOC: RADMAMWWP 09:55
PROVIDERS: ATTEND Obstetrics & Gynecology
DX: Z12.31 Encounter for screening mammogram for malignant neoplasm of breast (principal)
CPT/HCPCS: 77067

== ENCOUNTER → 2021-12-31 | Outpatient (CLI) | payer MEDICARE ==
--- NOTE | 2021-12-31 15:10 | MM ---
Reason for Exam: Additional evaluation requested from abnormal screening. Last screening mammogram was performed less than 1 month ago. Patient History: Menarche at age 11. First Full-Term at age 23. Right ovary removed at age 47. Postmenopausal. Currently using Estrogen, beginning at age 46 for 12 years, 6 months. Currently using Progesterone, beginning at age 46 for 12 years, 6 months. Currently using Hormonal Contraceptives. Benign Cyst Aspiration. Risk Values: Glenys 5 year model risk: 1.6%. NCI Lifetime model risk: 4.1%. Prior Study Comparison: 09/26/2019 Bilateral Screening Mammogram, [facility]. 12/23/2020 Bilateral Screening Mammogram, [facility]. 12/24/2021 Bilateral MG screening mammo w CAD, [facility]. Tissue Density: Right: The breast tissue is heterogeneously dense. This may lower the sensitivity of mammography. Findings: Analyzed By CAD. Mammogram On compression there is persistence of a lobular density upper-outer aspect right breast approximately 5 cm from the nipple. Additional evaluation with ultrasound is recommended. Technique: Method: Targeted. Findings: The upper outer quadrant of the right breast, the axilla of the right breast and the retroareolar of the right breast were scanned. There is an ill-defined irregular hypoechoic area measuring 0.8 x 0.6 x 0.5 cm. Some mild posterior shadowing may be present. This is 5 cm from the nipple at the 11:00 position right breast. Finding may correlate with the mammographic finding. Ultrasound-guided core biopsy of this finding is recommended. There is a 0.8 cm hypoechoic area with ill-defined margins within some increased density parenchymal tissue. This could be a small island of parenchymal tissue. Mass should be considered. This can be re-assessed at the time of biopsy for biopsy monitoring. Overall Assessment: Suspicious, BI-RAD 4 Assessment: MG work up mamm w CAD RT - Right: Incomplete: need additional imaging evaluation, BI-RAD 0. US breast workup limited RT - Right: Suspicious, BI-RAD 4. Management: Ultrasound Core Biopsy of the right breast. A clinical breast exam by your physician is recommended on an annual basis and results should be correlated with mammographic findings. Results were given to the patient verbally at the time of exam. Electronically signed and approved by: Abilio Hou D.O. Radiologis
== END | disposition home or self-care (01) ==
LOC: RADMAMWWP 13:34
PROVIDERS: ATTEND Obstetrics & Gynecology
DX: R92.8 Other abnormal and inconclusive findings on diagnostic imaging of breast (principal)
CPT/HCPCS: 77065

== ENCOUNTER → 2022-01-13 | Day surgery (SDC) | payer MEDICARE ==
--- NOTE | 2022-01-20 12:35 | MM ---
Reason for Exam: Post Procedure Mammogram. Last screening mammogram was performed less than 1 month ago. Patient History: Menarche at age 11. First Full-Term at age 23. Right ovary removed at age 47. Postmenopausal. Currently using Estrogen, beginning at age 46 for 12 years, 6 months. Currently using Progesterone, beginning at age 46 for 12 years, 6 months. Currently using Hormonal Contraceptives. Benign Cyst Aspiration. Risk Values: Glenys 5 year model risk: 1.6%. NCI Lifetime model risk: 4.1%. Prior Study Comparison: 12/23/2020 Bilateral Screening Mammogram, [facility]. 12/24/2021 Bilateral MG screening mammo w CAD, [facility]. 12/31/2021 Right MG work up mamm w CAD RT, [facility]. Tissue Density: Right: The breast tissue is heterogeneously dense. This may lower the sensitivity of mammography. Pathology Description: Location: 11 o'clock. Marker Left Behind. Needle Type: Celero Cores: 4 Gauge: 12 Pathology Results: Result: Malignant, Invasive lobular carcinoma. RIGHT BREAST, ELEVEN O'CLOCK POSITION, CORE BIOPSY: Invasive Grade 2 lobular carcinoma with focal microcalcification and focal lobular carcinoma in situ (see Surgical Pathology Cancer Case Summary and Comment). Overall Assessment: Malignant Assessment: MG diagnostic mammo RT wo CAD - Right: Known biopsy proven malignancy, BI-RAD 6. Management: Surgical Consultation of the right breast. Electronically signed and approved by: Jason Avina M.D. Radiologis
== END ==
LOC: RADUSWWP 13:00
PROVIDERS: ATTEND Surgery
DX: C50.411 Malignant neoplasm of upper-outer quadrant of right female breast (principal); Z17.0 Estrogen receptor positive status [ER+]; Z79.890 Hormone replacement therapy
CPT/HCPCS: 88305; 88342; 88341; 77065; 19083; A4648

== ENCOUNTER → 2022-01-29 | Outpatient (CLI) | payer MEDICARE ==
--- NOTE | 2022-02-01 09:28 | BMR ---
EXAMINATION TYPE: MR breast BILAT wo/w con DATE OF EXAM: 01/29/2022 COMPARISON: Bilateral screening mammogram December 24, 2021 BI-RADS 0. Diagnostic right breast mammogram J une 2021 and right breast ultrasound BI-RADS 4 HISTORY: R breast ca grade 2 lobular carcinoma and focal lobular carcinoma in situ on biopsy January 13, 2021. TECHNIQUE: A series of fat and water weighted images in the long and short axis views of both breasts are obtained in conjunction with dynamic contrast MRI with subtraction technique. The patient was i njected with 7.5 mL intravenous Gadavist gadolinium contrast. Three-dimensional and additional post processing imaging is created on independent workstation and reviewed during official interpretation of this study. FINDINGS: Scattered fibroglandular tissue bilaterally is redemonstrated. A few benign-appearing bilat eral axillary lymph nodes are seen bilaterally. T2 and STIR weighted images show focal fluid collecti ons or concerning cystic lesions bilaterally. Dynamic postcontrast imaging shows mild background enh ancement. Delayed dynamic imaging shows no suspicious intramammary adenopathy bilaterally. With regards to the left breast. No abnormal skin thickening is seen. No pathologic enhancement or en hancing mass is noted. The chest wall is intact. With regards to the right breast there is suspected susceptibility artifact from biopsy clip in the a nterior to middle depth slightly outer upper aspect seen best on postcontrast image 711 series 701. A t this level there is irregular mass with heterogeneous enhancement and adjacent nonmass-like enhance ment with low T1 and increased T2 signal measuring in total approximately 2.3 x 1.2 x 1.7 cm on MRI. Heterogeneous enhancement with areas of washout noted on dynamic MRI. This is slightly larger than murrell spected on recent ultrasound. No additional pathologic enhancement or enhancing masses are present. N o abnormal skin thickening is seen. Chest wall is intact. Small to moderate-size hiatal hernia incidentally noted. IMPRESSION: Lesion of concern measures slightly larger on MRI with area of involvement measuring grea test near 2.5 cm long axis. No multicentric neoplasm in the right breast. No MRI evidence for invasiv e malignancy in the left breast. BI-RADS 6 biopsy-proven cancer right breast. BI-RADS 2 benign findings left breast Recommendation: Appropriate surgical and oncologic management of newly diagnosed right breast carcino endy.
== END | disposition home or self-care (01) ==
LOC: RADMRIMAIN 09:04
PROVIDERS: ATTEND Surgery
DX: C50.911 Malignant neoplasm of unspecified site of right female breast (principal)
CPT/HCPCS: C8908; A9585; 77049

== ENCOUNTER 2022-02-11 10:49 | Day surgery (SDC) | payer MEDICARE ==
[2022-02-10 08:29] VITALS: BMI 27.4
--- NOTE | 2022-02-11 08:09 | P.HPADDEND ---
H&P Addendum H&P Addendum Date: 02/11/22 71-year-old female with recent diagnosis of right breast invasive lobular carcinoma. Patient had MRI after recent office note from 01/27. MRI shows known malignancy measuring 2.3 x 1.7 cm. No additional abnormalities seen. She was discussed at multidisciplinary tumor board. Spoke with patient by phone. She would like to proceed with breast conservation. Patient is scheduled today for right breast lumpectomy with wire localization, sentinel lymph node biopsy and injection. Risks of bleeding, infection, scarring, dimpling, possible need for further surgeries, nerve injury, numbness, weakness, lymphedema discussed with patient. She understands and wishes to proceed.
[~2022-02-11 10:49] MED LIST: ACETAMINOPHEN TAB 500 MG TAB PO PRN; DEXAMETHASONE SOD PHOSPHATE 4 MG/ML 1 ML VIAL IV ONE; HEPARIN SODIUM,PORCINE/PF 5,000 UNIT/0.5 ML SYRINGE SQ PRN; LACTATED RINGERS 1,000 ML IV SCH; LIDOCAINE 1% (10MG/ML) FOR IV START INTRADERMA PRN; METOCLOPRAMIDE 5 MG/ML 2 ML VIAL IVP PRN; ONDANSETRON 4 MG/2 ML VIAL IVP ONE; Pre Op ABX Message 1 EACH MISC MISCELLANE ONE
[2022-02-11] MEDS ORDERED: ALPRAZolam 0.25 MG TAB ONE (11:23)
[2022-02-11] MEDS ORDERED: ALPRAZolam 0.25 MG TAB PO ONE (11:24)
[2022-02-11] MEDS ORDERED: METHYLENE BLUE 50 MG/10 ML AMPUL INJ ONE ×2 (12:23→13:35)
[2022-02-11] MEDS ORDERED: BUPIVACAIN-EPI 0.25%-1:200,000 30 ML VIAL SQ ONE ×3 (12:23→14:15)
[2022-02-11] MEDS ORDERED: LIDOCAINE 1% INJ 10MG/ML (20 ML MDV) SQ ONE (12:34)
[2022-02-11] MEDS ORDERED: KETOROLAC 15 MG/ML 1 ML VIAL ONE (13:12)
[2022-02-11] MEDS ORDERED: LIDOCAINE 2% INJ 20 MG/ML (2 ML VIAL) ONE (13:12)
[2022-02-11] MEDS ORDERED: MIDAZOLAM 2 MG/2 ML VIAL ONE (13:12)
[2022-02-11] MEDS ORDERED: fentaNYL (PF) 50 MCG/ML 2 ML AMP ONE (13:12)
[2022-02-11] MEDS ORDERED: ePHEDrine 50 MG/ML 1 ML VIAL ONE (13:12)
[2022-02-11] MEDS ORDERED: PROPOFOL 10 MG/ML 20 ML VIAL IV ONE (13:12)
[2022-02-11] MEDS ORDERED: SODIUM CHLORIDE 0.9% 100 ML with ceFAZolin 2,000 MG IV ONE ×2 (13:33)
[2022-02-11] MEDS ORDERED: ONDANSETRON 4 MG/2 ML VIAL IVP PRN (14:28)
[2022-02-11] MEDS ORDERED: traMADol 50 MG TAB PO PRN (14:28)
[2022-02-11] MEDS ORDERED: PROMETHAZINE 25 MG TAB PO PRN (14:28)
[2022-02-11] MEDS ORDERED: NALOXONE 0.4 MG/ML 1 ML VIAL IV PRN (14:28)
[2022-02-11 14:36] VITALS: TEMP 96.8
[2022-02-11 14:41] VITALS: RESP 16
--- NOTE | 2022-02-11 14:43 | P.OP ---
Date of Procedure: 02/11/22 Procedure(s) Performed: PREOPERATIVE DIAGNOSIS: Right breast cancer POSTOPERATIVE DIAGNOSIS: Same PROCEDURE: Right Breast wire localization lumpectomy with sentinel lymph node biopsy SURGEON: Mark EBL: Minimal ANESTHESIA: General COMPLICATIONS: None OPERATIVE PROCEDURE: Patient was placed on the operating room table in the supine position. 2 mL of methylene blue was injected into the subareolar space. The breast was then massaged for 5 minutes. The breast was prepped and draped in usual sterile fashion. The right axilla was addressed at that time. The hot spot in the right axilla was identified. A small curvilinear incision was made using the scalpel. Dissection down through the subcutaneous tissues took place using electrocautery. Using the neoprobe I identified a total of 3 sentinel lymph nodes. One of these was blue in color. These had benign exam characteristics. These were all removed and sent to pathology for permanent sectioning. The surgical site was inspected and no bleeding was seen. The subcutaneous tissues were closed using 3-0 Vicryl sutures. The skin was closed using 4-0 Monocryl sutures. The wire entrance site was then addressed. This was present at the 9:00 location. A curvilinear incision was made adjacent to the wire entrance site. I followed the wire down into the breast tissue. An adequate lumpectomy specimen then took place around the wire. Margins of 1.5-2 cm worth attempted to be achieved. Palpation of the specimen suggested that the anterior margin was somewhat close. I took an additional margin anteriorly and this margin was painted the appropriate color on the new margin side. The initial specimen was also painted the appropriate 6 colors. Clips were used to identify the lumpectomy cavity. The clip was confirmed to be within the lumpectomy specimen by radiology. The subcutaneous tissues were closed using 3- 0 Vicryl sutures. The skin was closed using a running 4-0 Monocryl stitch. Skin glue was then applied. DISPOSITION: Stable to recovery room
--- NOTE | 2022-02-11 14:54 | NM ---
EXAMINATION TYPE: NM sentinel node injection DATE OF EXAM: 02/11/2022 COMPARISON: NONE HISTORY: 71-year-old female biopsy-proven right breast invasive lobular carcinoma. TECHNIQUE AND FINDINGS: The procedure of sentinel lymph node injection was explained to the patient. The benefits, alternatives, and risks were discussed. An informed consent was then obtained. Overlying skin is cleaned with sterile alcohol. Following this, 457 uCi [id number] Tilmanocept was inject ed in the upper outer aspect of the right nipple intradermally. The patient tolerated the procedure well without any immediate complication. The patient was kept in the radiology department for short stay after the procedure and then taken to surgery for surgical p rocedure what is presumed intraoperative gamma probe will be used for sentinel lymph node detection. IMPRESSION: Right breast radiotracer injection for sentinel node localization as above.
[2022-02-11] MEDS: HYDROmorphone 0.5 MG/0.5 ML SYRINGE IVP PRN ×2 (14:59→15:15)
[2022-02-11 15:55] VITALS: BP 156/83; PULSE 65
--- NOTE | 2022-02-18 12:22 | MM ---
Pathology Description: Needle Type: 5 cm Kopan As there was concern raised by the patient's breast MRI that the lesion may be larger than originally anticipated, repeat ultrasound is performed to assess if bracketing is warranted. The irregular hypoechoic lesion at 11:00, 5 cm from the nipple is identified. Largest size is 1.2 cm. The microclip is located within an adjacent small cystic area, possible biopsy related hematoma. For this reason, we moved forward with ultrasound-guided needle localization directly through the lesion itself. The procedure of needle localization with wire placement and than surgical excision was explained to the patient. Benefits, alternatives, and risks were discussed. An informed consent was then obtained. The shortest pathway for procedure was chosen. Shortest pathway was a lateral approach. The overlying skin was prepped and draped in usual sterile fashion. Lidocaine was used as anesthetic into the skin and subcutaneous tissue up to the level of area of concern. A 5 cm Kopan's needle was used. It was placed via a lateral approach under ultrasound guidance. The wire was deployed under real-time sonographic control. Subsequent CC view mammogram shows the needle to be in satisfactory position relative to the targeted area. With the clip and density along the thick segment of the wire. The wire was fixed to patient's skin. Images were marked for surgeon. The patient tolerated the procedure well without any immediate complication. The patient was kept in the radiology department for short stay after the procedure and then taken to surgery for surgical excision. Targeted clip, density, and wire are identified in specimen mammogram. The patient was kept in hospital for short stay after the procedure and then discharged home in stable condition. IMPRESSION: Successful, uncomplicated ultrasound-guided needle localization with wire placement and surgical excision of site of biopsy-proven invasive lobular carcinoma in the right breast, full pathology results to follow. Pathology Results: Result: Malignant, Invasive lobular carcinoma. A. RIGHT SENTINEL LYMPH NODES, EXCISION: Three lymph nodes, all negative for metastatic carcinoma. CK7 and SHAZIA stains, each performed with appropriate controls on blocks A1, A2 and A3, all negative for features of metastatic carcinoma. B. RIGHT BREAST, LUMPECTOMY: 2 foci of invasive lobular carcinoma, Grade 2, with focal lobular carcinoma in situ (see surgical pathology cancer case summary and comment). All margins negative for carcinoma. Closest margin to invasive carcinoma: Approximately 1 mm from anterior margin. C. RIGHT BREAST, NEW ANTERIOR MARGIN, EXCISION: Focal features suggestive of radial scar. Fibrocystic change and focal sclerosing adenosis with microcalcification. Negative for diagnostic in situ or invasive carcinoma. New anterior margin benign and negative for malignancy. Findings: As there was concern raised by the patient's breast MRI that the lesion may be larger than originally anticipated, repeat ultrasound is performed to assess if bracketing is warranted. The irregular hypoechoic lesion at 11:00, 5 cm from the nipple is identified. Largest size is 1.2 cm. The microclip is located within an adjacent small cystic area, possible biopsy related hematoma. For this reason, we moved forward with ultrasound-guided needle localization directly through the lesion itself. The procedure of needle localization with wire placement and than surgical excision was explained to the patient. Benefits, alternatives, and risks were discussed. An informed consent was then obtained. The shortest pathway for procedure was chosen. Shortest pathway was a lateral approach. The overlying skin was prepped and draped in usual sterile fashion. Lidocaine was used as anesthetic into the skin and subcutaneous tissue up to the level of area of concern. A 5 cm Kopan's needle was used. It was placed via a lateral approach under ultrasound guidance. The wire was deployed under real-time sonographic control. Subsequent CC view mammogram shows the needle to be in satisfactory position relative to the targeted area. With the clip and density along the thick segment of the wire. The wire was fixed to patient's skin. Images were marked for surgeon. The patient tolerated the procedure well without any immediate complication. The patient was kept in the radiology department for short stay after the procedure and then taken to surgery for surgical excision. Targeted clip, density, and wire are identified in specimen mammogram. The patient was kept in hospital for short stay after the procedure and then discharged home in stable condition. IMPRESSION: Successful, uncomplicated ultrasound-guided needle localization with wire placement and surgical excision of site of biopsy-proven invasive lobular carcinoma in the right breast, full pathology results to follow. Tissue Density: Right: The breast tissue is heterogeneously dense. This may lower the sensitivity of mammography. Findings: As there was concern raised by the patient's breast MRI that the lesion may be larger than originally anticipated, repeat ultrasound is performed to assess if bracketing is warranted. The irregular hypoechoic lesion at 11:00, 5 cm from the nipple is identified. Largest size is 1.2 cm. The microclip is located within an adjacent small cystic area, possible biopsy related hematoma. For this reason, we moved forward with ultrasound-guided needle localization directly through the lesion itself. The procedure of needle localization with wire placement and than surgical excision was explained to the patient. Benefits, alternatives, and risks were discussed. An informed consent was then obtained. The shortest pathway for procedure was chosen. Shortest pathway was a lateral approach. The overlying skin was prepped and draped in usual sterile fashion. Lidocaine was used as anesthetic into the skin and subcutaneous tissue up to the level of area of concern. A 5 cm Kopan's needle was used. It was placed via a lateral approach under ultrasound guidance. The wire was deployed under real-time sonographic control. Subsequent CC view mammogram shows the needle to be in satisfactory position relative to the targeted area. With the clip and density along the thick segment of the wire. The wire was fixed to patient's skin. Images were marked for surgeon. The patient tolerated the procedure well without any immediate complication. The patient was kept in the radiology department for short stay after the procedure and then taken to surgery for surgical excision. Targeted clip, density, and wire are identified in specimen mammogram. The patient was kept in hospital for short stay after the procedure and then discharged home in stable condition. IMPRESSION: Successful, uncomplicated ultrasound-guided needle localization with wire placement and surgical excision of site of biopsy-proven invasive lobular carcinoma in the right breast, full pathology results to follow. Overall Assessment: Malignant Assessment: MG diagnostic mammo RT wo CAD - Right: Known biopsy proven malignancy, BI-RAD 6. Management: Surgical Consultation of the right breast. Electronically signed and approved by: Christy Babb M.D. Radiologist
== END 2022-02-11 16:15 | disposition home or self-care (01) ==
LOC: OR 10:49
PROVIDERS: ATTEND Surgery
DX: C50.911 Malignant neoplasm of unspecified site of right female breast (principal); Z17.0 Estrogen receptor positive status [ER+]; K21.9 Gastro-esophageal reflux disease without esophagitis; E03.9 Hypothyroidism, unspecified; I10 Essential (primary) hypertension; Z88.5 Allergy status to narcotic agent; Z79.899 Other long term (current) drug therapy; Z79.890 Hormone replacement therapy; Z82.49 Family history of ischemic heart disease and other diseases of the circulatory system; Z82.5 Family history of asthma and other chronic lower respiratory diseases; Z83.6 Family history of other diseases of the respiratory system
CPT/HCPCS: 19301; 38500; 38900; 88342; 88307; 88341; 77065; 76098; 19285; 38792; C1819; A9520; J2250; J1100; J2405; J0690; J2001 ×2; J3010; J1885; J2704; Q9968; J1170; J1644

== ENCOUNTER → 2022-07-29 | Outpatient (CLI) | payer MEDICARE ==
--- NOTE | 2022-07-29 14:28 | MM ---
Reason for Exam: Follow-up at short interval from prior study. Last screening mammogram was performed 7 month(s) ago. Patient History: Menarche at age 11. First Full-Term at age 23. Right ovary removed at age 47. Postmenopausal. Breast cancer, right, age 71. Breast cancer, right, age 71. Previous chest radiation therapy at age 71. Currently using Estrogen, beginning at age 46 for 12 years, 6 months. Currently using Progesterone, beginning at age 46 for 12 years, 6 months. Currently using Hormonal Contraceptives. 02/11/2022, Lumpectomy on the Right side. 02/11/2022, Malignant US breast localization RT on the right side. 01/13/2022, Malignant US biopsy breast VAD RT on the right side. Benign Cyst Aspiration. Tissue Density: Right: The breast tissue is heterogeneously dense. This may lower the sensitivity of mammography. Findings: Analyzed By CAD. Postsurgical change and posttreatment changes right breast. Upper-outer quadrant vertical scar with clips. Additional axillary clips partially seen. Reassess that short interval follow-up to assess evolving posttreatment changes. Overall Assessment: Probably benign, BI-RAD 3 Management: Diagnostic Mammogram of both breasts in 5 months. At the time of the patient's annual exam. Continue monthly self breast exams. Results were given to the patient verbally at the time of exam. Electronically signed and approved by: Christy Babb M.D. Radiologist
== END | disposition home or self-care (01) ==
LOC: RADMAMWWP 12:35
PROVIDERS: ATTEND Internal Medicine
DX: R92.2 Inconclusive mammogram (principal); Z78.0 Asymptomatic menopausal state; Z85.3 Personal history of malignant neoplasm of breast
CPT/HCPCS: 77065; G0279; 77061

== ENCOUNTER → 2022-12-28 | Outpatient (CLI) | payer MEDICARE ==
--- NOTE | 2022-12-28 10:30 | MM ---
Reason for Exam: Follow-up at short interval from prior study. Last screening mammogram was performed 12 month(s) ago. Patient History: Menarche at age 11. First Full-Term at age 23. Right ovary removed at age 47. Postmenopausal. Breast cancer, right, age 71. Breast cancer, right, age 71. Previous chest radiation therapy at age 71. Estrogen, starting at age 46 for 12 years, 6 months. Progesterone, starting at age 46 for 12 years, 6 months. Used Hormonal Contraceptives. 02/11/2022, Lumpectomy on the Right side. 02/11/2022, Malignant US breast localization RT on the right side. 01/13/2022, Malignant US biopsy breast VAD RT on the right side. Benign Cyst Aspiration. Prior Study Comparison: 06/30/2016 Bilateral Screening Mammogram, [facility]. 09/02/2017 Bilateral Screening Mammogram, [facility]. 09/09/2017 Right Diagnostic Mammogram, [facility]. 09/12/2018 Bilateral Screening Mammogram, [facility]. 09/26/2019 Bilateral Screening Mammogram, [facility]. 12/23/2020 Bilateral Screening Mammogram, [facility]. 12/24/2021 Bilateral MG screening mammo w CAD, [facility]. 12/31/2021 Right US breast workup limited RT, [facility]. 12/31/2021 Right MG work up mamm w CAD RT, [facility]. 01/13/2022 Right MG diagnostic mammo RT wo CAD, [facility]. 01/29/2022 Bilateral MR breast bilat wo/w con, [facility]. 02/11/2022 Right MG diagnostic mammo RT wo CAD, [facility]. 07/29/2022 Right MG 3D diag mammo w/cad RT, [facility]. Tissue Density: The breast tissue is heterogeneously dense. This may lower the sensitivity of mammography. Findings: Analyzed By CAD. Postsurgical and posttreatment changes right breast. Short interval follow-up to assess for any evolving posttreatment change. Areas of asymmetric density on the left are unchanged. No significant change from prior exams. Overall Assessment: Probably benign, BI-RAD 3 Management: Diagnostic Mammogram of the right breast. To assess for any evolving posttreatment change. Results were given to the patient verbally at the time of exam. Patient should continue monthly self-breast exams. A clinical breast exam by your physician is recommended on an annual basis. This exam should not preclude additional follow-up of suspicious palpable abnormalities. Electronically signed and approved by: Christy Babb M.D. Radiologist
== END | disposition home or self-care (01) ==
LOC: RADMAMWWP 09:30
PROVIDERS: ATTEND Internal Medicine
DX: R92.2 Inconclusive mammogram (principal); Z78.0 Asymptomatic menopausal state; Z85.3 Personal history of malignant neoplasm of breast
CPT/HCPCS: 77062; 77066

== ENCOUNTER → 2022-12-28 | Outpatient (CLI) | payer MEDICARE ==
--- NOTE | 2022-12-28 19:14 | BD ---
EXAMINATION TYPE: Axial Bone Density DATE OF EXAM: 12/28/2022 CLINICAL HISTORY: 72 years old Female. ICD-10 CODE: C50.411 MALIGNANT NEOPLASM UPPER OUTER QUADRANT Height: 63 Weight: 159 FRAX RISK QUESTIONS: Family History (Parent hip fracture): no History of Fracture in Adulthood: no Secondary Osteoporosis: no Rheumatoid Arthritis: no RISK FACTORS HISTORY OF: Family History of Osteoporosis: yes, mother Active: yes Diet low in dairy products/other sources of calcium: no Postmenopausal woman: yes, age 45 Lost more than 2 inches in height since high school: no Frequent falls: no Poor Health: no MEDICATIONS: Thyroid Medications: yes Which medication: Levothyroxine How Lon+years Additional Medications: yes antineoplastic, hbp meds, vit d, calcium Additional History: yes breast ca '22 with radiation EXAM MEASUREMENTS: Bone mineral densitometry was performed using the [employer]. Bone mineral density as measured about the Lumbar spine is: ----- L1-L4(G/cm2): 1.092 T Score Values are as follows: ----- L1: -2.3 ----- L2: -1.5 ----- L3: -0.7 ----- L4: 1.1 ----- L1-L4: -0.7 Z Score Values are as follows: ----- L1: -0.8 ----- L2: -0.1 ----- L3: 0.7 ----- L4: 2.5 ----- L1-L4: 0.7 Bone mineral density has: Decreased -7.7% since study of: 12/23/2020 Bone mineral density about the R hip (g/cm2): 0.892 Bone mineral density about the L hip (g/cm2): 0.881 T Score values are as follows: -----R Neck: -1.7 -----L Neck: -1.7 -----R Total: -0.9 -----L Total: -1.0 Z Score values are as follows: -----R Neck: 0.0 -----L Neck: 0.0 -----R Total: 0.5 -----L Total: 0.4 Bone mineral density has: Decreased -2.7% since study of: 12/23/2020 FRAX%s: The graph provided illustrates a 11.2% chance for a major osteoporotic fx and a 2.1% chance f or the hips probability for fx in 10 years time. IMPRESSION: Osteopenia (T Score between -2.5 and -1). There is slightly increased risk of fracture and the patient may be considered for treatment. Re-Screen 2-5 years. NOTE: T-SCORE=SD OF THE YOUNG ADULT MEAN.
== END | disposition home or self-care (01) ==
LOC: RADBDWWP 09:33
PROVIDERS: ATTEND Internal Medicine
DX: C50.411 Malignant neoplasm of upper-outer quadrant of right female breast (principal); M85.89 Other specified disorders of bone density and structure, multiple sites
CPT/HCPCS: 77080

== ENCOUNTER → 2023-07-05 | Outpatient (CLI) | payer MEDICARE ==
--- NOTE | 2023-07-05 11:31 | MM ---
Reason for Exam: Follow-up at short interval from prior study. Last screening mammogram was performed 6 month(s) ago. Patient History: Menarche at age 11. First Full-Term at age 23. Right ovary removed at age 47. Postmenopausal. Breast cancer, right, age 71. Breast cancer, right, age 71. Previous chest radiation therapy at age 71. Estrogen, starting at age 46 for 12 years, 6 months. Progesterone, starting at age 46 for 12 years, 6 months. Used Hormonal Contraceptives. 02/11/2022, Lumpectomy on the Right side. 02/11/2022, Malignant US breast localization RT on the right side. 01/13/2022, Malignant US biopsy breast VAD RT on the right side. Benign Cyst Aspiration. Prior Study Comparison: 02/11/2022 Right MG diagnostic mammo RT wo CAD, [facility]. 07/29/2022 Right MG 3D diag mammo w/cad RT, [facility]. 12/28/2022 Bilateral MG 3D diag mammo w/cad [facility], [facility]. Tissue Density: Right: There are scattered fibroglandular densities. Findings: Analyzed By CAD. Pattern appears stable. Post lumpectomy changes are in the upper outer right breast. No significant interval changes are evident. No suspicious groups of microcalcifications, spiculated or lobular masses, architectural distortion or other secondary signs of malignancy are mammographically apparent. Overall Assessment: Benign, BI-RAD 2 Management: Diagnostic Mammogram of both breasts in 6 months. A negative mammogram report should not preclude additional follow up of suspicious palpable abnormalities. Patient should continue monthly self breast exam. A clinical breast exam by your physician is recommended on an annual basis and results should be correlated with mammographic findings. Electronically signed and approved by: Abilio Hou D.O. Radiologis
== END | disposition home or self-care (01) ==
LOC: RADMAMWWP 11:06
PROVIDERS: ATTEND Surgery
DX: R92.321 Mammographic fibroglandular density, right breast (principal); Z78.0 Asymptomatic menopausal state; Z92.0 Personal history of contraception; Z85.3 Personal history of malignant neoplasm of breast
CPT/HCPCS: 77061; 77065

== ENCOUNTER → 2024-01-05 | Outpatient (CLI) | payer MEDICARE ==
--- NOTE | 2024-01-05 10:20 | MM ---
Reason for Exam: Hx of breast cancer, conservation therapy. Last screening mammogram was performed 12 month(s) ago. Patient History: Menarche at age 11. First Full-Term at age 23. Right ovary removed at age 47. Postmenopausal. Breast cancer, right, age 71. Breast cancer, right, age 71. Previous chest radiation therapy at age 71. Estrogen, starting at age 46 for 12 years, 6 months. Progesterone, starting at age 46 for 12 years, 6 months. Used Hormonal Contraceptives. 02/11/2022, Lumpectomy on the Right side. 02/11/2022, Malignant US breast localization RT on the right side. 01/13/2022, Malignant US biopsy breast VAD RT on the right side. Benign Cyst Aspiration. Tissue Density: The breasts are heterogeneously dense, which may obscure small masses. Findings: Analyzed By CAD. Postoperative changes right breast. No evidence for mass or distortion. No suspicious microcalcifications. Overall Assessment: Benign, BI-RAD 2 Management: Diagnostic Mammogram of both breasts in 1 year. . Results were given to the patient verbally at the time of exam. Patient should continue monthly self-breast exams. A clinical breast exam by your physician is recommended on an annual basis. This exam should not preclude additional follow-up of suspicious palpable abnormalities. Note on Glenys scores and lifetime risk: 1. A Glenys score greater than 3% is considered moderate risk. If this is the case, consider specialist referral to assess eligibility for a risk reducing agent. 2. If overall lifetime risk for the development of breast cancer is 20% or higher, the patient may qualify for future screening with alternating mammogram and breast MRI. Electronically signed and approved by: Jason Avina M.D. Radiologis
== END | disposition home or self-care (01) ==
LOC: RADMAMWWP 09:43
PROVIDERS: ATTEND Internal Medicine
DX: C50.411 Malignant neoplasm of upper-outer quadrant of right female breast (principal); R92.333 Mammographic heterogeneous density, bilateral breasts; Z71.3 Dietary counseling and surveillance; Z78.0 Asymptomatic menopausal state
CPT/HCPCS: 77062; 77066

== ENCOUNTER → 2024-03-06 | Outpatient (CLI) | payer MEDICARE | END | disposition home or self-care (01) | LOC: LABPRL 14:30 | PROVIDERS: ATTEND Family Medicine | DX: I10 Essential (primary) hypertension (principal); D72.819 Decreased white blood cell count, unspecified | CPT/HCPCS: 80053; 85025 ==

== ENCOUNTER → 2025-01-07 | Outpatient (CLI) | payer MEDICARE ==
--- NOTE | 2025-01-07 13:42 | MM ---
Reason for Exam: Hx of breast cancer, conservation therapy. Last screening mammogram was performed 12 month(s) ago. Patient History: Menarche at age 11. First Full-Term at age 23. Right ovary removed at age 47. Postmenopausal. Breast cancer, right, age 71. Breast cancer, right, age 71. Previous chest radiation therapy at age 71. Estrogen, starting at age 46 for 12 years, 6 months. Progesterone, starting at age 46 for 12 years, 6 months. Used Hormonal Contraceptives. 02/11/2022, Lumpectomy on the Right side. 02/11/2022, Malignant US breast localization RT on the right side. 01/13/2022, Malignant US biopsy breast VAD RT on the right side. Benign Cyst Aspiration. Prior Study Comparison: 12/24/2021 Bilateral MG screening mammo w CAD, [facility]. 01/13/2022 Right MG diagnostic mammo RT wo CAD, [facility]. 07/29/2022 Right MG 3D diag mammo w/cad RT, [facility]. 12/28/2022 Bilateral MG 3D diag mammo w/cad [facility], [facility]. 07/05/2023 Right MG 3D diag mammo w/cad RT, [facility]. 01/05/2024 Bilateral MG 3D diag mammo w/cad [facility], [facility]. Tissue Density: There are scattered areas of fibroglandular density. Findings: Analyzed By CAD. Postsurgical and posttreatment changes right breast. No significant change from prior exams. Overall Assessment: Benign, BI-RAD 2 Management: Screening Mammogram of both breasts in 1 year. Results were given to the patient verbally at the time of exam. Patient should continue monthly self-breast exams. A clinical breast exam by your physician is recommended on an annual basis. This exam should not preclude additional follow-up of suspicious palpable abnormalities. [facility], , 01/07/2025 1:40 PM. Electronically signed and approved by: Christy Babb M.D. Radiologist
== END | disposition home or self-care (01) ==
LOC: RADMAMWWP 13:12
PROVIDERS: ATTEND Surgery
DX: R92.323 Mammographic fibroglandular density, bilateral breasts (principal); Z85.3 Personal history of malignant neoplasm of breast; Z92.0 Personal history of contraception; Z78.0 Asymptomatic menopausal state
CPT/HCPCS: 77062; 77066